=== PATIENT | female | born 1950 | race Caucasian/White ===

== ENCOUNTER → 2022-12-18 14:00 | Outpatient (BNVA) | payer MEDICARE, SELFPAY | PROVIDERS: Family Provider Nurse Practitioner; PCP Nurse Practitioner; Visit Provider Nurse Practitioner Family | DX: R05.9 Cough, unspecified (principal); J06.9 Acute upper respiratory infection, unspecified | CPT/HCPCS: 87400; 87426 ==

== ENCOUNTER → 2023-07-05 09:57 | Outpatient (BNVA) | payer MEDICARE, SELFPAY | PROVIDERS: Family Provider Nurse Practitioner; PCP Nurse Practitioner; Visit Provider Family Medicine | DX: N12 Tubulo-interstitial nephritis, not specified as acute or chronic (principal); M70.50 Other bursitis of knee, unspecified knee; L89.309 Pressure ulcer of unspecified buttock, unspecified stage | CPT/HCPCS: 81003 ==

== ENCOUNTER → 2023-07-12 10:23 | Outpatient (BNVA) | payer MEDICARE, SELFPAY | PROVIDERS: Family Provider Nurse Practitioner; PCP Nurse Practitioner; Visit Provider Family Medicine | DX: N12 Tubulo-interstitial nephritis, not specified as acute or chronic (principal); M70.50 Other bursitis of knee, unspecified knee; L89.309 Pressure ulcer of unspecified buttock, unspecified stage | CPT/HCPCS: 81000 ==

== ENCOUNTER → 2024-09-14 09:42 | Outpatient (BNVA) | payer MEDICARE, SELFPAY | PROVIDERS: Family Provider Nurse Practitioner; PCP Family Medicine; Visit Provider Nurse Practitioner Family | DX: R61 Generalized hyperhidrosis (principal) | CPT/HCPCS: 87400; 87426 ==